=== PATIENT | female | born 1990 | race Two or more races ===

== ENCOUNTER 2025-03-17 14:41 | Inpatient (IN) | payer MEDICAID, SELFPAY ==
--- NOTE | 2025-03-15 08:53 | ESHP_ITS ---
RE: ROLO TELLES : 1990 DATE OF ADMISSION: 03/17/2025 This is a 35-year-old 4, para 3-0-0-3 with due date of 03/09 with intrauterine at 41 weeks and 1 days on 03/17 who presents for induction of labor. She reports occasional contractions. She denies any leaking or bleeding. She reports normal movement. On EFW she has intermittent late decelerations and prolonged decelerations with a cervix of only 2 cm. ALLERGIES: OCELLA CONTROL PILL. MEDICATIONS: 1. multivitamin 1 p.o. daily. 2. Aspirin 81 mg 1 p.o. daily. 3. Ferrous sulfate 325 mg 1 p.o. daily. PAST MEDICAL HISTORY: Iron deficiency anemia, hyperlipidemia, polycystic ovarian syndrome, abnormal pap smear. SOCIAL HISTORY: She is . She denies any alcohol, drug use, or smoking. FAMILY HISTORY: Maternal aunt breast cancer. Paternal grandfather lung cancer, diabetes. OBSTETRIC HISTORY: In 2007, a 40-week normal vaginal delivery, 1-xsiaah-3-ounce female, no complications. In 2011, a 40-week normal vaginal delivery, 0-bnqid-1-ounce male, no complications. In 2017, a 40-week normal vaginal delivery, 9-qhvkw-5-ounce male, no complications. PAST SURGICAL HISTORY: Denies. REVIEW OF SYSTEMS: She denies any chest pain, palpitations, cough, fever, shortness of breath, flank pain, or lower extremity pain. PHYSICAL EXAMINATION: VITAL SIGNS: Blood pressure 128/69, heart rate 74, respirations 18, temperature is 98.2. Weight 206 pounds. HEENT: Oropharynx and sclerae clear. LUNGS: Clear to auscultation bilaterally. HEART: Regular rate and rhythm. ABDOMEN: Gravid, term size, consistent with estimated weight 8 pounds. PELVIC: See RN notes. EXTREMITIES: Nontender. SKIN: No gross rashes or lesions. NEUROLOGIC: No focal deficit. ASSESSMENT AND PLAN: Intrauterine at 41 weeks and 1 days on 03/17. Category 2 tracing with intermittent late decelerations and prolonged decelerations with a cervix of only 2 cm. Not a candidate for induction or trial of vaginal delivery. PLAN: Delivery. Informed consent was obtained. Patient was made aware of the risks, complications, alternatives, and benefits of delivery. She agrees to have a C section. DT: 09:50:33 TT: 10:03:00 Ref: [id number] - TID: [id number] MTDD
[2025-03-17] VITALS (22 sets, daily range): BP systolic 100–129; BP diastolic 42–83; PULSE 55–110; RESP 12–25; TEMP 36.6–36.9; O2SAT 97–100; BMI 33.0
--- NOTE | 2025-03-17 08:49 | PC.NURSE ---
LATE ENTRY: 0732 PT CALLED ASKING FOR BED AVAILABILITY FOR IOL, INFORMED OF NO BEDS AVAILABLE, EDUCATED ON KICK COUNT AND LABOR PRECAUTIONS, WILL CALL PT ONCE A BED BECOMES AVAILABLE, PT VERBALIZED UNDERSTANDING
--- NOTE | 2025-03-17 13:51 | PC.NURSE ---
LATE ENTRY: PT CALLED ASKING FOR BED AVAILABILITY FOR IOL, ASKED PT TO COME AND BE HERE BY 1430, PT VERBALIZED UNDERSTANDING
[2025-03-17] MEDS: ceFAZolin/D5W 2 GM IV 2 GM/100 ML BAG IV (16:23)
[2025-03-17] MEDS: METOCLOPRAMIDE INJ 5 MG/ML VIAL 2 ML 10 MG IVP (16:23)
[2025-03-17] MEDS: FAMOTIDINE INJ 10 MG/ML VIAL 2 ML 20 MG IV (16:23)
--- NOTE | 2025-03-17 16:30 | PD.ADDHP ---
Addendum History & Physical Addendum Date of report being addended: 03/17/25 Narrative: Pt reexamined and H and P changed to reflect the plan to proceed with C/S based on Category 2 tracing remote from delivery.
[2025-03-17 16:34] LABS: Basophils # (Auto) 0.0 Thou/mm3 (0.0-0.2); Basophils % (Auto) 1 % (0-2.5); Eosinophils # (Auto) 0.1 Thou/mm3 (0.0-0.5); Eosinophils % (Auto) 1 % (0-10); Hematocrit 40.0 % (36.0-46.0); Hemoglobin 13.6 g/dL (12.0-16.0); Immature Granulocytes Auto 0.03 Thou/mm3 (0.00-0.00); Lymphocytes # (Auto) 1.7 Thou/mm3 (1.0-4.8); Lymphocytes % (Auto) 21 % (10-50); Mean Corpuscular HGB Conc 34.0 g/dl (31.0-37.0); Mean Corpuscular Hemoglobin 28.2 pg (25.0-35.0); Mean Corpuscular Volume 83 fL (80-100); Monocytes # (Auto) 0.9 Thou/mm3 (0.0-0.8); Monocytes % (Auto) 10 % (0-12); Neutrophils # (Auto) 5.6 Thou/mm3 (1.8-7.7); Neutrophils % (Auto) 67 % (37-80); Nucleated Red Blood Cell # 0.00 Thou/mm3 (0.00-0.00); Nucleated Red Blood Cell % 0 /100 WBC (0); Platelet Count 250 Thou/mm3 (140-440); RDW Standard Deviation 44.5 fL (36.4-46.3); Red Blood Count 4.83 Miln/mm3 (4.00-5.20); White Blood Count 8.3 Thou/mm3 (3.6-11.0)
[2025-03-17 17:02] LABS: Syphilis Nonreactive (Nonreactive)
--- NOTE | 2025-03-17 17:16 | PD.LDDS ---
DS: Providers Provider Date of admission: 03/17/25 14:41 Primary care physician: Ananya Lyons PA-C Admitting Provider: Ron Hunt MD Attending Provider on Admission: Ron Hunt MD Attending Provider on DC: Ron Hunt MD Discharging Provider: Ron Hunt MD DS: Diagnosis Discharge Diagnosis (1) delivery delivered: Status: Acute Problem List Completed Was Problem List Reviewed/Reconciled?: Yes Summary/Hosp Course Peripartum Data Delivery Method: Low Transverse Episiotomy Description: None Procedures: Procedures Operation Date: 03/17/25 17:15 <No data on this case meets the specified criteria> Time Spent with Patient Time attestation: Total time spent providing and/or coordinating discharge services: Exam Vital Signs Pulse BP Pulse Ox 61 118/73 100 03/17/25 15:12 03/17/25 15:12 03/17/25 16:27 Discharge Plan Plan Patient Disposition: HOME (Self Care) Patient condition on transfer: Stable Prescriptions/Referrals Prescriptions/Med Rec: New hydrocodone-acetaminophen 5-325 mg tablet 1 tab PO Q6H MDD 4 PRN (Reason: pain) Qty: 20 0RF ibuprofen 600 mg tablet 600 mg PO Q6H PRN (Reason: pain) Qty: 30 0RF Continued PNV no.95-ferrous fumarate-FA [] 28 mg iron- 800 mcg tablet PO Patient Comments: TAKE 1 TABLET DAILY Discontinued Vitamin * 1 EACH tablet 1 tab PO QDAY Qty: 0 aspirin 81 mg tablet,delayed release (DR/EC) Patient Comments: TAKE 1 TABLET EVERY DAY Accrufer 30 mg capsule PO Patient Comments: TAKE 1 CAPSULE BY MOUTH TWICE A DAY ON AN EMPTY STOMACH Referrals: Ananya Lyons PA-C [Primary Care Provider] Patient/Caregiver Discharge Instructions Discharge Activity: activity as tolerated Other Discharge Activity Instructions:: Follow up office 1 week. Education Materials: C Section Dc Print Language: Polish Stand Alone Forms: Mayra Award Info., Patient Portal Info Letter Discharge Order Discharge Orders: Discharge (Routine); Ordered 03/19/25 Ordered By: Ron Hunt Planned Discharge Date 03/19/25
--- NOTE | 2025-03-17 17:16 | PD.GYNPROC ---
Operative Note - CHIEF CLINICAL DIETITIAN Procedure Date of procedure: 03/17/25 Procedure Performed: Primary low-transverse section via Pfannenstiel skin incision Indication: Intrauterine at 41 weeks and 3 days Category 2 tracing remote from delivery Pre-Op diagnosis: Intrauterine at 41 weeks and 3 days Category 2 tracing remote from delivery Post-Op diagnosis: Intrauterine at 41 weeks and 3 days Category 2 tracing remote from delivery Tight nuchal cord Anesthesia type: Spinal Procedure description: After proper informed consent was obtained and the patient was made aware of the risks, complications, alternatives and benefits of the proposed procedure she was taken to the operating room where she underwent induction of spinal anesthesia. She was prepped and draped in the usual sterile fashion. A timeout was performed.? A Pfannenstiel skin incision was made with the scalpel and carried through to the underlying layer of fascia with the Bovie. The fascia was nicked in the midline incision and the incision was extended bilaterally with the Bovie. The inferior aspect of the fascial incision was grasped with Blas clamps elevated and the underlying rectus muscle dissected off with the Bovie. The superior aspect the fascial incision was grasped with Blas clamps elevated and the underlying rectus muscle dissected off with the Bovie. The rectus muscles were in the midline. The peritoneum was grasped between 2 Patterson clamps and entered sharply with the Metzenbaum scissors. The peritoneum was extended superiorly and inferiorly with good visualization of the bladder. The vesicouterine peritoneum was incised transversely and the bladder flap created digitally. A [place] blade was inserted. A low transverse incision was made in the uterus with a scapel and the incision was extended digitally. The infant's head delivered and the mouth and nose were suctioned with the bulb suction. Nuchal cord reduced. The shoulder and body delivered atraumatically. The cord was clamped after 30 second delayed cord clamping and the cord was cut.? The infant was handed off to the waiting Pediatric staff, cord blood was collected for lab testing. The placenta was removed complete and intact. The uterus was exteriorized and cleared of all clots and debris. The uterine incision was closed with #1-0 chromic catgut suture in a running interlocking fashion. A second layer of the same suture was used to imbricate the first layer and obtain excellent hemostasis. The vesicouterine peritoneum was closed with 2-0 chromic catgut suture in a running fashion. The firm uterus was returned to the abdomen. The gutters were cleared of all clots and debris. The peritoneum was closed with 0 chromic catgut suture in running fashion. The rectus muscle was closed with 0 chromic catgut suture. The fascia was closed with 0 Vicryl beginning at each angle and ending in the center in a running fashion. The subcutaneous tissue was irrigated with warmed normal saline solution and found to be hemostatic. The subcutaneous tissue was closed with 2-0 chromic catgut suture in a running fashion. The skin was closed with 4-0 Monocryl. A Dermabond Prineo dressing was applied and a sterile pressure dressing was applied.? She tolerated the procedure well. Counts were correct. I discussed with the patient the nature of her condition, intraoperative findings and expectation for recovery all? questions answered. Specimen: none Estimated blood loss (ml): 600 Findings: Live male infant Apgars 8 and 9 Weight 7 pounds 6 ounces Tight nuchal cord Clear amniotic fluid Placenta removed complete and intact Cephalic Uterus ovaries and fallopian tubes grossly within normal limits Complications: none Surgical staff CAL Murray Dr Surgeon Operation Date: 03/17/25 17:15 <No data on this case meets the specified criteria> Diagnosis Problem List Completed Was Problem List Reviewed/Reconciled?: Yes
--- NOTE | 2025-03-17 17:30 | PD.LDDELS ---
Data (Lee) Data : 4 Delivery Data (Lee) Labor Data Induction/Augmentation Agent: None ROM date: 03/17/25 ROM time: 16:49 Amniotic fluid description: Clear Delivery Data EDC: 02/08/25 EDC calculated by:: LMP/early US confirmation Onset of labor date: 03/17/25 Onset of labor time: 16:49 Complete dilation date: 03/17/25 Complete dilation time: 16:49 [place] delivery date: 03/17/25 [place] delivery time: 16:50 Gestational age (weeks): 41 Gestational age (days): 3 Placenta delivery date: 03/17/25 Placenta delivery time: 16:51 Stage 1 total time: Labor - Stage 1 Duration 0 minutes Delivered by: Geiling Delivery nurse: Tosha Montiel nurse: [employer] Designer at delivery: No Support person(s) at delivery: FOB Other staff at delivery: NAE PARRA, CAL SAYAR, OB OR Tech Delivery Method Delivery method: Low Transverse Presentation: Vertex position: OP Anesthesia Type Anesthesia Type: Spinal Anesthesia type: Spinal Placenta Placenta delivery description: Manual Removal Cord blood sent to lab: Yes cord blood collection: Cord Blood Type Episiotomy Episiotomy description: None EBL Estimated blood loss (ml): 600 Umbilical Cord cord description: 3 Vessels, Nuchal Cord, Tight and Reduced Complications Complications: None Data (Lee) [place] Data order: 1 [place]'s gender: Male Identification band number: [id number] weight (gms): 7 lb 4.757 oz Weight (pounds): 7 lbs and 4.8 ozs [place] length: 21.75 in 1 minute: 8 5 minutes: 9
[2025-03-17] MEDS: KETOROLAC INJ 30 MG/ML VIAL IVP (18:50)
[2025-03-17 22:43] LABS: Basophils # (Auto) 0.0 Thou/mm3 (0.0-0.2); Basophils % (Auto) 0 % (0-2.5); Eosinophils # (Auto) 0.1 Thou/mm3 (0.0-0.5); Eosinophils % (Auto) 1 % (0-10); Hematocrit 34.6 % (36.0-46.0); Hemoglobin 11.8 g/dL (12.0-16.0); Immature Granulocytes Auto 0.03 Thou/mm3 (0.00-0.00); Lymphocytes # (Auto) 2.0 Thou/mm3 (1.0-4.8); Lymphocytes % (Auto) 19 % (10-50); Mean Corpuscular HGB Conc 34.1 g/dl (31.0-37.0); Mean Corpuscular Hemoglobin 28.3 pg (25.0-35.0); Mean Corpuscular Volume 83 fL (80-100); Monocytes # (Auto) 1.0 Thou/mm3 (0.0-0.8); Monocytes % (Auto) 10 % (0-12); Neutrophils # (Auto) 7.5 Thou/mm3 (1.8-7.7); Neutrophils % (Auto) 70 % (37-80); Nucleated Red Blood Cell # 0.00 Thou/mm3 (0.00-0.00); Nucleated Red Blood Cell % 0 /100 WBC (0); Platelet Count 186 Thou/mm3 (140-440); RDW Standard Deviation 44.5 fL (36.4-46.3); Red Blood Count 4.17 Miln/mm3 (4.00-5.20); White Blood Count 10.7 Thou/mm3 (3.6-11.0)
[2025-03-18 00:45] VITALS: BP 109/68; PULSE 74; RESP 16; TEMP 36.8; O2SAT 99
[2025-03-18] MEDS: KETOROLAC INJ 30 MG/ML VIAL IVP (01:15)
[2025-03-18] MEDS: OXYTOCIN in NS 20 units 20 UNIT/1,000 ML BAG 125 UNIT IV (01:16)
[2025-03-18 03:25] VITALS: BP 102/58; PULSE 71; RESP 16; TEMP 36.9; O2SAT 99
--- NOTE | 2025-03-18 07:54 | ESPR_ITS ---
RE: ROLO TELLES : 1990 DATE OF SERVICE: 03/18/2025 SUBJECTIVE: Postop day number 1, patient denies any problem or complaints. OBJECTIVE: VITAL SIGNS: Blood pressure is 102/58, heart rate 71, respiration 16, and temperature is 98.4. Pulse oximetry is 99% on room air. LUNGS: Clear to auscultation bilaterally. HEART: Regular rate and rhythm. ABDOMEN: Dressing dry and intact. Fundus is firm. EXTREMITIES: Nontender. ASSESSMENT: Postop day number 1 status post delivery. PLAN: 1. Remove dressing. 2. Discontinue IV. 3. Encourage ambulation. 4. support. 5. Possible discharge home tomorrow. DT: 07:46:07 TT: 07:53:00 Ref: [id number] - TID: [id number]
[2025-03-18 08:00] VITALS: BP 115/74; PULSE 83; RESP 17; TEMP 36.8; O2SAT 98
[2025-03-18] MEDS: DOCUSATE SOD 100 MG CAPSULE PO (08:12)
[2025-03-18] MEDS: IBUPROFEN TAB 400 MG TABLET 800 MG PO ×2 (08:12→16:40)
[2025-03-18 13:00] VITALS: BP 125/69; PULSE 82; RESP 17; TEMP 36.8; O2SAT 99
[2025-03-18] MEDS: ACETAMINOPHEN 325 MG TABLET 650 MG PO ×2 (13:21→22:48)
[2025-03-18] MEDS: SIMETHICONE 80 MG CHEW PO (19:54)
[2025-03-18 20:00] VITALS: BP 109/70; PULSE 78; RESP 18; TEMP 36.5; O2SAT 98
[2025-03-19] MEDS: IBUPROFEN TAB 400 MG TABLET 800 MG PO ×3 (00:36→16:34)
[2025-03-19 03:54] VITALS: BP 123/74; PULSE 60; RESP 16; TEMP 36.7; O2SAT 97
[2025-03-19] MEDS: ACETAMINOPHEN 325 MG TABLET 650 MG PO ×2 (05:00→11:26)
--- NOTE | 2025-03-19 06:05 | ESPR_ITS ---
RE: ROLO TELLES : 1990 DATE OF SERVICE: 03/19/2025 SUBJECTIVE: Postop day #2. The patient denies any problem or complaints. She is voiding. She is ambulating. She is tolerating her diet. She is passing flatus. She denies any excessive vaginal bleeding. She denies any dizziness or lightheadedness. She denies any chest pain, palpitations, shortness of breath or lower extremity pain. OBJECTIVE: VITAL SIGNS: Blood pressure 123/74, heart rate 60, respirations 16, temperature is 98.0 and pulse ox is 97% on room air. LUNGS: Clear to auscultation bilaterally. HEART: Regular rate and rhythm. ABDOMEN: Nondistended. Incision clear and intact. Fundus is firm. EXTREMITIES: Nontender. ASSESSMENT: Postop day #2, status post delivery. PLAN: Discharge home. Discharge instructions given. Follow up in the office in 1 week. DT: 05:26:57 TT: 06:04:00 Ref: [id number] - TID: [id number]
[2025-03-19 08:00] VITALS: BP 117/72; PULSE 68; RESP 17; TEMP 36.3; O2SAT 97
[2025-03-19] MEDS: DOCUSATE SOD 100 MG CAPSULE PO (08:30)
[2025-03-19] MEDS: SIMETHICONE 80 MG CHEW PO (11:26)
[2025-03-19 12:00] VITALS: BP 118/74; PULSE 70; RESP 15; TEMP 36.8; O2SAT 98
== END 2025-03-19 19:10 | disposition home or self-care (01) | DRG 540 ==
LOC: S4SX 16:34 → S4NX 16:40
PROVIDERS: Admitting Provider Specialist; PCP Physician Assistant; Visit Provider Specialist
PROC: 10D00Z1 Extraction of Products of Conception, Low, Open Approach (ICD-10-PCS; CPT 59514; principal; 2025-03-17 17:00)
DX: O48.0 Post-term pregnancy (principal); O76 Abnormality in fetal heart rate and rhythm complicating labor and delivery; Z37.0 Single live birth; Z3A.41 41 weeks gestation of pregnancy; O69.1XX0 Labor and delivery complicated by cord around neck, with compression, not applicable or unspecified
CPT/HCPCS: 36415; 59409; 85025; 86780; 86850; 86900; 86901; 94762; A4217; A4314; A4649; J0689; J1885; J2274; J2371; J2590; J2765; J3010; J3490; A9270; J2270